=== PATIENT | male | born 1960 | race Caucasian/White ===

== ENCOUNTER 2018-10-15 15:30 | Emergency (ER) | payer SELFPAY ==
[~2018-10-15] VITALS: Ht 185.4 cm; Wt 90.7 kg
--- NOTE | 2018-10-15 15:50 | NUR ---
PT FELL WHILE HELPING DO CONSTRUCTION WITH FAMILY HOME. LANDING ON LEFT SHOULDER. +RADIAL PULSE NOTED. +DEFORMITY. PROTRUDING FORWARD. NO PREVIOUS HX OF DISLOCATION. 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 PT AAOX3. FLAT AFFECT, BUT PLEASANT AND COOEPRATIVE. CRASH CART TO ROOM, SUCTION ON AT BEDSIDE. BVM TO O2, FULL CARDIAC MONITORING, NC @2 LPM, NS TKO TO RT ARM IV., CONSENT SIGNED AND ON CHART, ALL PRE PROCEDURE SCORES DONE, SLING/SWATH SHOULDER IMMOBILIZER IN ROOM, PORTABLE XRAY OUTSIDE DOOR, PROPOFOL PULLED PER MD ORDER. 2ND NURSE @ MD ELIANA, RN AND TECH TO REDUCE DISLOCATION.
--- NOTE | 2018-10-15 16:19 | Diagnostic Imaging Report ---
Exam: Left shoulder 2 views History: Pain, fall Comparison: None. Findings: Left anterior shoulder dislocation. No displaced fracture. Impression: Left anterior shoulder dislocation. Signed by: Dr. Charlie Arroyo M.D. on 10/15/2018 4:16 PM
[2018-10-15] MEDS ORDERED: PROPOFOL IV EMULSION 10MG/ML 100ML BTL IV ONE (16:28)
[2018-10-15] MEDS ORDERED: SODIUM CHLORIDE 0.9% 1000ML 1,000 ML IV STA (16:30)
[2018-10-15 16:45] VITALS: BP 172/83
--- NOTE | 2018-10-15 16:46 | NUR ---
REPORT TO ESTRELLA WOOD FOR MODERATE SEDATION OF PT.
--- NOTE | 2018-10-15 16:47 | NUR ---
Time out completed with Dr. Lindsey at this time.
[2018-10-15] MEDS: PROPOFOL IV EMULSION 10 MG/ML 20 ML VIAL IV ONE ×2 (16:48→18:24)
--- NOTE | 2018-10-15 16:48 | NUR ---
Propofol 50mg given @1648 Propofol 30mg given @1650 Both doses given by the ER MD Dr. Grey.
--- NOTE | 2018-10-15 17:15 | NUR ---
Pt currently AAOx3. Pt fully awake and alert post procedure. RR even and unlabored. Vitals stable at this time. Side rails remain up x2. Family at bedside.
[2018-10-15] MEDS ORDERED: PROPOFOL IV EMULSION 10 MG/ML 50 ML VIAL IV ONE (17:29)
--- NOTE | 2018-10-15 17:33 | Diagnostic Imaging Report ---
LEFT SHOULDER X-RAY - 1 VIEW HISTORY: Post reduction ^[id number] ^[id number] COMPARISON: Left shoulder x-ray 10/15/2018 1530 p.m. FINDINGS: Bones: Successful closed reduction of the left shoulder dislocation. No acute fractures. Osseous alignment is within normal limits. Joints: The joint spaces are well-maintained. Soft tissues: The soft tissues appear unremarkable. IMPRESSION: Successful closed reduction of the left shoulder dislocation. No acute fractures. Signed by: Dr. Desi Aguayo M.D. on 10/15/2018 5:29 PM
--- NOTE | 2018-10-15 18:16 | NUR ---
Pt walking with steady gait.
== END 2018-10-15 18:37 | disposition home or self-care (01) ==
LOC: FSED 15:30
DX: S43.015A Anterior dislocation of left humerus, initial encounter (principal); W01.0XXA Fall on same level from slipping, tripping and stumbling without subsequent striking against object, initial encounter; Y92.008 Other place in unspecified non-institutional (private) residence as the place of occurrence of the external cause; F17.210 Nicotine dependence, cigarettes, uncomplicated
CPT/HCPCS: 23655; 73020; 73030; 93005; 99285; J2704; J7030